=== PATIENT | male | born 1995 | race African-American/Black ===

== ENCOUNTER 2022-01-02 19:01 | Emergency (ER) | payer OTHER ==
[2022-01-02 19:42] LABS: BASOPHIL 0.3 % (0-2); EOSINOPHIL 0.1 % (0-5); HCT 46.4 % (42.0-52.0); HGB 15.7 g/dl (13.2-18.0); LYMPHOCYTE 18.4 % (15-48); MCH 29.2 pg (25.0-31.0); MCHC 33.8 g/dL (32.0-36.0); MCV 86.2 fL (78.0-100.0); MONOCYTE 7.1 % (0-12); MPV 10.4 fL (6.0-9.5); NEUTROPHIL 73.1 % (41-80); NRBC 0; PLT 317 K/uL (150-400); RBC 5.38 M/uL (4.70-6.00); RDW 12.8 % (11.5-14.0); WBC 17.4 K/uL (4.0-10.5)
[2022-01-02 19:54] LABS: ALBUMIN 4.4 g/dL (3.4-5.0); BILIRUBIN - TOTAL 0.8 mg/dL (0.2-1.0); BUN/CREAT RATIO (CALC) 11.6 RATIO; CREATININE 0.95 mg/dL (0.67-1.17); GLOBULIN (CALCULATION) 3.6 g/dL; POTASSIUM 2.9 mmol/L (3.5-5.1)
== END 2022-01-03 00:21 | disposition other institution (70) ==
LOC: FER 19:01
PROVIDERS: Emergency Medicine
DX: S72.002A Fracture of unspecified part of neck of left femur, initial encounter for closed fracture (principal); U07.1 COVID-19; V27.9XXA Unspecified motorcycle rider injured in collision with fixed or stationary object in traffic accident, initial encounter; Y92.410 Unspecified street and highway as the place of occurrence of the external cause
CPT/HCPCS: 36415; 70450; 71260; 72125; 72128; 72131; 73502; 73552; 80053; 83690; 85025; 90471; 90715; J1170; J2405; J3010; J3475; J3480; J7030; Q9967; U0002